=== PATIENT | male | born 1970 | race Caucasian/White ===

== ENCOUNTER 2018-06-19 09:44 | Emergency (ER) | payer BC ==
[2018-06-19 10:22] LABS: #Basophils 0.1 thou/uL (0.0-0.2); #Eosinphils 0.2 thou/uL (0.0-0.7); #Lymphocytes 1.9 thou/uL (1.20-3.40); #Monocytes 0.5 thou/uL (0.11-0.59); #Neutrophils 3.2 thou/uL (1.40-6.50); %Basophils 0.9 % (0.0-1.0); %Eosinophils 3.1 % (0.0-10.0); %Lymphocytes 32.7 % (21.0-51.0); %Monocytes 8.6 % (0.0-10.0); %Neutrophils 54.7 % (42.0-75.0); Hemoglobin 14.7 g/dL (14.0-18.0); Mean Corpuscular HGB CONC 34.7 g/dL (32.0-36.0); Mean Corpuscular Hemoglobin 31.5 pg (27.0-31.0); Mean Corpuscular Volume 90.8 fL (78.0-98.0); Mean Platelet Volume 7.1 fL (7.4-10.4); Platelet Count 257 thou/uL (130-400); RBC Distribution Width 11.7 % (11.5-14.5); Red Blood Cell (RBC) Count 4.66 mill/uL (4.70-6.10); White Blood Cell (WBC) Count 5.8 thou/uL (4.8-10.8)
[2018-06-19 10:29] LABS: Bilirubin Negative (Negative); Blood, Urine Negative (Negative); Clarity CLEAR (Clear); Glucose, Urine (Dipstick) Negative (Negative); Leukocyte Negative (Negative); Nitrite Negative (Negative); Protein, Urine (Dipstick) Negative (Neg-Trace); Specific Gravity, Urine 1.025 (1.002-1.036); Urobilinogen 0.2 mg/dL (0.2-1.0); pH, Urine 6.5 (5.0-9.0)
[2018-06-19 10:45] LABS: ALT (SGPT) 41 U/L (8-55); AST (SGOT) 26 U/L (5-34); Albumin 4.2 g/dL (3.5-5.0); Alkaline Phosphatase 91 U/L (40-150); Anion Gap 8 mmol/L (10-20); BUN (Urea Nitrogen) 22 mg/dL (8.9-20.6); Bilirubin, Total 0.6 mg/dL (0.2-1.2); Calc. Creatinine Clearance 0 mL/min (70-130); Calcium 8.8 mg/dL (7.8-10.44); Carbon Dioxide 24 mmol/L (22-29); Chloride 106 mmol/L (98-107); Estimated GFR-MDRD Greater than 90; Glucose 106 mg/dL (70-105); Lipase 18 U/L (8-78); Potassium 4.2 mmol/L (3.5-5.1); Protein, Total 7.2 g/dL (6.0-8.3); Sodium 134 mmol/L (136-145)
--- NOTE | 2018-06-19 10:47 | CT ---
CT OF ABDOMEN AND PELVIS PERFORMED WITHOUT CONTRAST ENHANCEMENT: HISTORY: Abdominal pain. History of kidney stones. FINDINGS: The lung bases are clear. The liver, spleen, pancreas and gallbladder regions appear unremarkable. Right and left adrenal glands and right and left kidneys are normal in size and appearance. No renal or ureteral calculi are seen. There is no significant periaortic or mesenteric adenopathy. CT OF PELVIS PERFORMED WITHOUT CONTRAST ENHANCEMENT: The appendix is normal. There is no evidence of adenopathy or mass. There is some subtle inflammato ry change within the fat along the right margin of the sigmoid colon. There is some minimal divertic ular disease in this area. Cannot totally exclude the possibility that this is early diverticulitis. IMPRESSION: Subtle inflammatory change within the fat adjacent to the sigmoid colon and associated very minimal d iverticular disease. I cannot exclude this is some minimal early diverticulitis. POS: JESENIA
== END 2018-06-19 11:24 | disposition home or self-care (01) ==
LOC: ERS 09:44
DX: K57.92 Diverticulitis of intestine, part unspecified, without perforation or abscess without bleeding (principal); Z79.899 Other long term (current) drug therapy
CPT/HCPCS: 74176; 80053; 81003; 83690; 85025

== ENCOUNTER 2019-12-30 22:17 | Observation (INO) | payer BC ==
[2019-12-30 22:36] LABS: #Basophils 0.1 thou/uL (0.0-0.2); #Eosinphils 0.3 thou/uL (0.0-0.7); #Lymphocytes 2.7 thou/uL (1.20-3.40); #Monocytes 0.7 thou/uL (0.11-0.59); #Neutrophils 4.1 thou/uL (1.40-6.50); %Basophils 1.5 % (0.0-1.0); %Eosinophils 4.3 % (0.0-10.0); %Lymphocytes 34.1 % (21.0-51.0); %Monocytes 8.6 % (0.0-10.0); %Neutrophils 51.6 % (42.0-75.0); Hemoglobin 14.1 g/dL (14.0-18.0); Mean Corpuscular HGB CONC 33.9 g/dL (32.0-36.0); Mean Corpuscular Hemoglobin 30.9 pg (27.0-31.0); Mean Corpuscular Volume 91.1 fL (78.0-98.0); Mean Platelet Volume 7.7 fL (7.4-10.4); Platelet Count 266 thou/uL (130-400); RBC Distribution Width 11.5 % (11.5-14.5); Red Blood Cell (RBC) Count 4.58 mill/uL (4.70-6.10); White Blood Cell (WBC) Count 7.8 thou/uL (4.8-10.8)
[2019-12-30 22:58] LABS: ALT (SGPT) 38 U/L (8-55); AST (SGOT) 26 U/L (5-34); Albumin 4.2 g/dL (3.5-5.0); Alkaline Phosphatase 116 U/L (40-110); Anion Gap 13 mmol/L (10-20); BUN (Urea Nitrogen) 21 mg/dL (8.9-20.6); Bilirubin, Total 0.3 mg/dL (0.2-1.2); CK (CPK) 290 U/L (30-200); Calc. Creatinine Clearance 0 mL/min (70-130); Calcium 8.8 mg/dL (7.8-10.44); Carbon Dioxide 25 mmol/L (22-29); Chloride 107 mmol/L (98-107); Estimated GFR-MDRD 67; Globulin 3.4 g/dL (2.4-3.5); Glucose 132 mg/dL (70-105); Lipase 33 U/L (8-78); Potassium 3.8 mmol/L (3.5-5.1); Protein, Total 7.6 g/dL (6.0-8.3); Sodium 141 mmol/L (136-145)
--- NOTE | 2019-12-30 22:58 | RAD ---
XR Chest 1 View Portable History: Chest pain Comparison: Radiograph 2014 Findings: Lungs are clear. No pneumothorax. No effusion. Tendon suture anchors left lambdoid. No acute osseous abnormality. Impression: No acute intrathoracic abnormality.
--- NOTE | 2019-12-30 23:25 | CT ---
CT Brain WO Con History: Vertigo Comparison: None. Findings: No acute hemorrhage or infarct. No midline shift or mass effect. Ventricular size and extra -axial CSF spaces are normal. Paranasal sinuses and mastoids are clear. Calvarium is intact. Impression: No acute intracranial abnormality.
[2019-12-31 01:11] VITALS: BMI 38.0
[2019-12-31] MEDS ORDERED: Nitroglycerin 0.4 MG TAB (25 Tab Bottle) PO PRN (01:43)
[2019-12-31] MEDS ORDERED: Sodium Chloride 0.9% 1,000 ML IV SCH (02:00)
--- NOTE | 2019-12-31 02:54 | HP ---
TIME OF ASSESSMENT: 010 CHIEF COMPLAINT: Dizziness and chest pain. HISTORY OF PRESENT ILLNESS: Mr. Kendrick is a 49-year-old gentleman, who states he is concerned regarding chest pain he experienced this evening. The chest pain started when he was in route to the hospital. The patient states he decided to seek medical attention due to sudden onset dizziness associated with an elevated blood pressure. The patient was apparently sitting home watching TV when he suddenly developed dizziness, described as a spinning sensation. The patient reports having a mild occipital headache. He states he shook his head, but the symptoms worsened. He stood up to get water from the kitchen and noted that his gait was veering towards the left and his , who is a physical therapist, checked his blood pressure and noticed he was hypertensive with a blood pressure of 150/100. He opted to seek medical attention and when en route to the hospital, he began to feel left-sided discomfort in his chest radiating to the left shoulder. He reports having chronic issues with bilateral shoulder pain. The pain he states was a 5/ 10 in severity, described as an aching. The patient reports being very concerned due to a history of coronary artery disease in his sister who had a quadruple bypass in her early 50s. He states he recently had a stress test less than 6 months ago and follows with Dr. Dave. The patient states his pain has resolved on its own. He is no longer experiencing dizziness. Denies having any extremity weakness or numbness, but does report noting slight numbness on the right side of his face while in the emergency department, however, that has resolved. Denies any other symptoms. EMERGENCY DEPARTMENT COURSE: In the emergency department, the patient underwent an EKG which showed normal sinus rhythm with a heart rate of 99. There were no ST changes or T-wave abnormalities. He was given 324 mg of aspirin and 1 L of normal saline, also nitroglycerin sublingual. Given the complaints of dizziness, he underwent a CT of the brain which showed no acute intracranial abnormality. He did have a chest x-ray done as well also showing no acute intrathoracic abnormality. PAST MEDICAL HISTORY: 1. Obesity. 2. Bilateral shoulder pain. PAST SURGICAL HISTORY: 1. Bilateral shoulder surgeries. 2. Epigastric hernia repair. 3. Back surgery. SOCIAL HISTORY: The patient lives with his . Reports drinking alcohol occasionally. Denies any drug use or tobacco use. ALLERGIES: NO KNOWN DRUG ALLERGIES. CURRENT MEDICATIONS: 1. Flonase. 2. Claritin. PHYSICAL EXAMINATION: GENERAL: Patient appears well developed, well nourished, is in no acute distress. VITAL SIGNS: Temperature 98.2, pulse 85, blood pressure 134/76, respirations 18 , O2 saturation 96% on room air. HEENT: Normocephalic, atraumatic. Pupils are equal, round, and reactive to light. Sclerae without icterus. Oropharynx is clear. NECK: Supple. No lymphadenopathy. LUNGS: Clear to auscultation bilaterally without wheezes, rales, or rhonchi. CARDIAC: Regular rate and rhythm without audible murmurs, rubs, or gallops. ABDOMEN: Soft, obese, nontender, nondistended. Normoactive bowel sounds present. No guarding or rigidity. No renal angle tenderness. EXTREMITIES: No lower leg swelling or edema. NEUROLOGIC: Alert and oriented x3. Power 5/5 in all limbs. Facial movements normal. Facial sensation intact. No cerebellar signs. SKIN: Warm and dry. INVESTIGATIONS: As mentioned above in HPI. Full blood count done showed a white count of 7.8, hemoglobin 14.1, and hematocrit 41.7, platelets 266. Sodium 141, potassium 3.8, BUN 21, creatinine 1.17, GFR 67, glucose 132, and calcium 8.8. LFTs unremarkable. CK 290, alkaline phosphatase 116. Troponin negative. IMPRESSION AND PLAN: Mr. Kendrick is a 49-year-old gentleman, who is being admitted for management of the following. 1. Dizziness/ataxia. Symptoms have fully resolved. He had sudden onset dizziness while watching TV with an associated occipital headache. CT head was negative. We will obtain a CT angiogram of the head and neck and echo. The patient's symptoms have fully resolved. Neurology consult ordered as well. 2. Acute coronary syndrome rule out. The patient experienced chest pain while en route to the hospital, which has fully resolved. Strong family history of coronary artery disease in his sister. EKG unremarkable. Continue to trend troponins. Recent stress test less than 6 months ago. Per patient request, consultation has been placed to Dr. Dave. 3. Gastrointestinal prophylaxis with famotidine. 4. Deep venous thrombosis prophylaxis, the patient is ambulatory. 5. Code status is full. Surrogate decision maker is his , Leslye Kendrick. Case discussed with Dr. French, who agrees with plan of care as described above. Job ID: [id number] [facility]
--- NOTE | 2019-12-31 04:26 | PDOC.EVN ---
Event Note - Event Note Event Note: Notified by RN, patient experiencing chest pain 4/10 , radiating to left neck/ arm. Stat EKG done notable for further ST depression in v4-v6 compared to previous EKG. Aspirin 325 mg PO x 1 and nitro SL ordered. Trend trop x 3. Cardiology already consulted for the AM. Patient has been NPO since midnight. Dr. Edgar aware and in agreement with plan as above.
[2019-12-31] MEDS ORDERED: Aspirin 325 mg Enteric Coated Tablet PO SCH (04:30)
[2019-12-31 05:02] LABS: #Basophils 0.1 thou/uL (0.0-0.2); #Eosinphils 0.2 thou/uL (0.0-0.7); #Monocytes 0.5 thou/uL (0.11-0.59); %Basophils 1.8 % (0.0-1.0); %Eosinophils 4.2 % (0.0-10.0); %Lymphocytes 34.3 % (21.0-51.0); %Monocytes 8.5 % (0.0-10.0); %Neutrophils 51.2 % (42.0-75.0); Hemoglobin 12.7 g/dL (14.0-18.0); Mean Corpuscular HGB CONC 32.9 g/dL (32.0-36.0); Mean Corpuscular Hemoglobin 30.1 pg (27.0-31.0); Mean Corpuscular Volume 91.7 fL (78.0-98.0); Mean Platelet Volume 7.8 fL (7.4-10.4); Platelet Count 235 thou/uL (130-400); RBC Distribution Width 11.4 % (11.5-14.5); Red Blood Cell (RBC) Count 4.22 mill/uL (4.70-6.10); White Blood Cell (WBC) Count 5.8 thou/uL (4.8-10.8)
[2019-12-31 05:16] LABS: Anion Gap 11 mmol/L (10-20); BUN (Urea Nitrogen) 20 mg/dL (8.9-20.6); Calc. Creatinine Clearance 208 mL/min (70-130); Calcium 8.1 mg/dL (7.8-10.44); Carbon Dioxide 21 mmol/L (22-29); Cardiac Risk 4.8 (Less than 4.5); Chloride 110 mmol/L (98-107); Cholesterol 173 mg/dl (< 200 Desired); Estimated GFR-MDRD Greater than 90; Glucose 123 mg/dL (70-105); HDL Cholesterol 36 mg/dL (>60 Neg Risk); LDL Cholesterol, Calculated 128 mg/dL; Potassium 4.1 mmol/L (3.5-5.1); Sodium 138 mmol/L (136-145); Triglycerides 47 mg/dL (Less than 150)
[2019-12-31 05:19] LABS: Troponin I Less than 0.010 ng/mL (< 0.028)
--- NOTE | 2019-12-31 08:57 | CT ---
PRELIMINARY REPORT/[facility]/EMERGENCY AFTER HOURS PROCEDURE: EXAM: CTA Head and Neck with Intravenous Contrast. CLINICAL HISTORY: INPT; M48, rule out CVA, vertigo/ataxia. TECHNIQUE: Axial CTA images of the head and neck performed with intravenous contrast. MIP reconstruct ed images were created and reviewed. Note: Per PQRS, the description of internal carotid artery percent stenosis, including 0 percent or normal exam, is based on [place] Symptomatic Carotid Endarterectomy Trial (NASCET) criteria. CONTRAST: With; 100ML ISOVUE 370 COMPARISON: None provided. FINDINGS: CTA NECK: COMMON CAROTID ARTERIES No significant stenosis. No dissection or occlusion. INTERNAL CAROTID ARTERIES No stenosis by NASCET criteria. No dissection or occlusion. Arterial scler osis in the right parasellar internal carotid artery. VERTEBRAL ARTERIES No significant stenosis. No dissection or occlusion. The left vertebral artery is dominant. CTA HEAD: ANTERIOR CEREBRAL ARTERIES No significant stenosis. No occlusion. No aneurysm. MIDDLE CEREBRAL ARTERIES No significant stenosis. No occlusion. No aneurysm. POSTERIOR CEREBRAL ARTERIES No significant stenosis. No occlusion. No aneurysm. BASILAR ARTERY No significant stenosis. No occlusion. No aneurysm. OTHER: SOFT TISSUES No acute finding. No masses or lymphadenopathy. BONES No acute osseous abnormality. Multilevel degenerative disc disease. IMPRESSION: Unremarkable CTA of the head and neck. ELECTRONICALLY SIGNED BY: Compa Oscar MD Dec 31, 2019 2:55:11 AM INJECTION MOLDING SUPERVISOR FINAL REPORT EMERGENCY AFTER HOURS STUDY CT ANGIOGRAM NECK WITH CONTRAST CT ANGIOGRAM BRAIN WITH CONTRAST: DATE:12/31/2019. HISTORY: 49-year-old male with vertigo and ataxia. TECHNIQUE: After IV contrast injection, arterial bolus chasing technique scan performed from AP window to vertex of head. Coronal and sagittal 3-D MIP reconstructions. FINDINGS: Because of body habitus, there is streak artifact obscuring the origins of the bilateral vertebral ar teries. Proximal portions of vertebral arteries are poorly visualized. Left vertebral artery is dominant. No high-grade stenosis or occlusion of bilateral cervical and intracranial vertebral arteries. No M1 segment thrombus or high-grade stenosis. No high-grade stenosis in the rest of the visualized major arteries. Agree with preliminary report by [facility]. IMPRESSION: 1. Poor visualization of proximal vertebral arteries. 2. Otherwise negative. Transcribed Date/Time: 12/31/2019 9:24 AM
[2019-12-31] MEDS ORDERED: Famotidine/PF 20 mg/2ml Vial SLOW IVP SCH (09:00)
[2019-12-31] MEDS ORDERED: Aspirin 81 mg Enteric Coated Tablet PO SCH (09:00)
[2019-12-31] MEDS ORDERED: Iopamidol-370 76% 500 ML 1 ML ONE (12:48)
--- NOTE | 2019-12-31 14:43 | MRI ---
MRI BRAIN WITHOUT CONTRAST: HISTORY: Dizziness, TIA, vertigo CORRELATION: CT scan from 12/30/2019. FINDINGS: No restricted diffusion is seen. There are a few foci of T2 prolongation in the periventricular white matter, consistent with mild chronic small vessel ischemic disease. The ventricular size is appropriate and the basilar cisterns are patent. No evidence of acute infarct, hemorrhage, midline shift or abnormal extra-axial fluid collections is seen. The visualized paranasal sinuses and mastoid air cells are well-aerated. IMPRESSION: No evidence of acute intracranial process.
--- NOTE | 2019-12-31 15:15 | CON ---
DATE OF CONSULTATION: PRIMARY CARE PHYSICIAN: Dr. Oskar Martinez. PRIMARY SENIOR STRUCTURAL ENGINEER: Dr. Tamara Dave. MAIN GI DOCTOR: Dr. Martinez. REASON FOR CARDIOLOGY CONSULT: Chest pain, recent normal test. HISTORY OF PRESENT ILLNESS: Mr. Kendrick is a 49-year-old, very pleasant male with significant history of GERD and seasonal allergy. The patient underwent a treadmill Jared protocol stress test in June 2019 for complaint of chest tightness at rest and shortness of breath and also due to the strong family history of heart disease. The patient's treadmill stress test in June 2019 showed normal, no EKG change. Since then, the patient was doing well. He works at [employer]. He takes the stairs up and down at least 3 miles a day without any chest pain, heaviness, tightness, shortness of breath, or any other cardiac complaints. However, last night around 7:00, while the patient was watching TV on the sofa, he started having spinning like dizziness for 3 to 4 minutes. At that time, he did not have any shortness of breath, chest pain or tightness, or any other cardiac complaints. When the patient dizziness stopped, the patient started having stabbing like headache at the occipital and frontal area. Due to that symptom, the patient's took the patient to the ER. While he was in the car for 30 minutes, he started having achiness like pain to the left upper arm, left upper chest and under the left breast for 15 minutes. Also, he started having chest tightness to mid mediastinal area until at this moment. The patient denied dizziness, shortness of breath, or any other cardiac complaints during that episode. The patient still complaining of the chest tightness at this moment, however, he can walk to the bathroom without . The patient denied shortness of breath or any other cardiac complaints when he walk around the room. He has a history of GERD. He underwent EGD and colonoscopy in July last year by Dr. Mratinez, which were normal. He takes Pepcid as needed, last administration was 2 days ago. The patient has a Jared protocol treadmill stress test in June 2019 with normal EKG, no symptom, no ischemic change at the peak exercise. The patient had echocardiogram done today and the result is pending. The patient's sister has history of CABG in July 2019 at the age of 5252 years old. She had another myocardial infarction in November 2019, she continued smoking. PAST MEDICAL HISTORY: Diverticulitis, GERD. The patient has borderline diabetes. PAST SURGICAL HISTORY: EGD and colonoscopy in July 2019, which were normal; total 4 bilateral shoulder surgeries; hernia repair in . FAMILY HISTORY: The patient's sister had a CABG procedure at the age of 52 and she had another myocardial infarction in 3 months this year. The patient's cousin has long history of hypertension since he was 14 years old and he has a history of coronary artery disease. The patient's father and mother due to cancer. SOCIAL HISTORY: The patient is . He has 3 children, who live well. The patient works at [employer] as a full-time. He walks at least 3 [address]. The patient denied any cardiac complaints during that time. The patient denied tobacco abuse. He drinks 1 to 2 beers per week. The patient denies illicit drug abuse. He does not do any cardiac exercise. He drinks coffee or tea one and half cup a day. ALLERGIES: NO KNOWN DRUG ALLERGIES. MEDICATIONS: 1. Pepcid 40 mg once a day as needed. 2. Flonase and Claritin as needed. REVIEW OF SYSTEMS: 12-point review of systems negative unless otherwise mentioned in the HPI. PHYSICAL EXAMINATION: VITAL SIGNS: Blood pressure 112/55, temperature 97.9, pulse is 87 and sinus rhythm, respiratory rate 16, O2 saturations 95% on room air. GENERAL: The patient is alert and oriented x4, not in acute distress. HEAD: Normocephalic and atraumatic. EYES: Extraocular muscle movement intact. ENT AND MOUTH: Oral and nasal mucosa moist without lesions. NECK: Supple. Normal range of motion. No JVD. RESPIRATORY: Clear to auscultate bilaterally. No wheezing, rales, or rhonchi noted. CARDIOVASCULAR: Regular rate and rhythm. Normal S1 and S2. There is no S3 or S4. No significant murmur, hives, or thrill noted. 2+ pulses in bilateral upper and lower extremities. No edema in lower extremities. ABDOMEN: Soft, nontender. No mass palpated. Bowel sounds are present. MUSCULOSKELETAL: The patient able to move all extremities without difficulty. The patient denied claudication. SKIN: Warm and dry. No lesion, rash, or erythema noted. NEUROLOGIC: The patient is alert and oriented x4. Nonfocal. PSYCHIATRIC: The patient's mood is appropriate. LABORATORY DATA: WBC 5.8, hemoglobin 12.7, hematocrit 38.7, platelet 235. Sodium 138, potassium 4.1, BUN 20, creatinine 0.76, glucose 123, AST 26, ALT 38. Troponin is negative x3. BNP is negative. Total cholesterol 173, triglycerides HDL 36, LDL 128, and TSH 1.6581. IMAGING STUDIES: The patient had a brain CT scan done with no acute intracranial abnormality. Chest x-ray shows no acute intrathoracic abnormality. The patient had a CT angiography done, but the result is pending. The patient had echocardiogram done this morning and the result is pending at this moment. The patient's troponin has been negative x3. The patient's EKG is normal rhythm without ST-segment changes or T-wave inversion. The patient's treadmill stress test in June 2019 showed normal. However, the patient presented to the hospital for recurrent chest tightness with strong family history of coronary artery disease. We would like to keep the patient n.p.o. after the patient had a light breakfast this morning. I would like to discuss with Dr. Dave for further cardiac evaluation for this patient. At this moment, the patient has a chest tightness, however, it is mild. The patient's vital signs are stable. If the patient's symptoms are getting worse, we would like to order nitroglycerin paste for this patient. Hyperlipidemia. The patient's LDL is 128 and HDL 36. The patient is willing to start cardiac exercise, watching his diet. 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 GERD. The patient's condition is stable at this moment. He is on Pepcid 20 mg IV push every 12 hours. Thank you very much for Cardiology Service to participate in care of this patient. We will follow along the patient's care team and make further recommendations as appropriate. Job ID: [id number]
[2019-12-31 16:26] VITALS: BP 140/73; TEMP 98.3
--- NOTE | 2020-01-01 02:14 | CON ---
DATE OF CONSULTATION: 12/31/2019 INDICATION FOR CONSULTATION: A 49-year-old patient, who complains of chest discomfort. Also has family history of coronary artery disease. He has no history of any other risk factors for coronary artery disease which would include hypertension, diabetes, hypercholesterolemia or tobacco abuse. He was seen in the office by me in May of last year 2018 at which time, he complained of some chest discomfort. He underwent an evaluation at that time with a stress test, which showed no evidence of ischemia. He was able to walk on a treadmill for almost 7 minutes and 41 seconds and had no EKG changes and no evidence of ischemia. Yesterday had been out working, went to the dentist office, then he went home, was sitting down on the sofa for about an hour and a half and then developed some dizziness. He then tried to get up. He said when he stood up, he originally was not dizzy. He was surprised,that he was not dizzy. He then went to the bathroom or kitchen to get some water. On his way back, he became very dizzy, had to put his hand on the table. His noticed that and she asked him to just sit down on the floor, which he did and then he continued to have some dizziness and he developed some pain in the back of his head, and then she brought him to the emergency room. He was worked up and thus far has been unremarkable. His enzymes are negative for myocardial infarction. CT scan was unremarkable for any evidence of any acute neurological effects or events and also he had echocardiogram performed, which shows normal ejection fraction with no evidence of significant abnormalities. Cardiac enzymes are negative and EKG is also unremarkable for any evidence of ongoing ischemia. On the way to the hospital, his asked him if he was sure that he did not have any chest discomfort and he did eventually said yes. He did have some chest discomfort when he arrived here. The pain had already resolved and he still complains of on and off being dizzy. At the time the original dizziness, apparently, the blood pressure was 150/100, that has now stabilized. He also had a headache which also then had persisted, but then resolved. He has some problems with bilateral shoulders. He complains of some left shoulder pain. He describes the pain once his had asked that he have pain that is a sharp stabbing pain in the left anterior lateral chest over the shoulder area, which radiated down the arm. He said that he had some tightness and the tightness still persist, but again no EKG changes. Enzymes have been noted. His echocardiogram here also shows no evidence of significant abnormalities. The right ventricle appeared to be slightly dilated in some views and may be hypokinetic, but otherwise unremarkable. He had a CT scan of the head, which showed no evidence of carotid artery disease and no evidence of internal abnormalities otherwise. PHYSICAL EXAMINATION: GENERAL: Reveals a well-developed, well-nourished gentleman, in no acute distress. He is alert. He is oriented. VITAL SIGNS: Stable. HEENT: Unremarkable. CHEST: Clear to auscultation. CARDIOVASCULAR: Reveals a regular rate and rhythm. ABDOMEN: Shows obesity with positive bowel sounds. EXTREMITIES: Show no clubbing, cyanosis, or edema. Pedal pulses are present. NEUROLOGICAL: The patient appears to be fully intact. LABORATORY DATA: Please refer to the notes dictated by the nurse practitioner, Justin Ayala. SOCIAL HISTORY: Please refer to the notes dictated by the nurse practitioner, Justin Ayala. PAST MEDICAL HISTORY: Please refer to the notes dictated by the nurse practitioner, Justin Ayala. REVIEW OF SYSTEMS: Please refer to the notes dictated by the nurse practitioner , Justin Ayala. ALLERGIES: PLEASE REFER TO THE NOTES DICTATED BY THE NURSE PRACTITIONER, JUSTIN AYALA. MEDICATIONS: Please refer to the notes dictated by the nurse practitionerJustin. IMPRESSION: 1. Middle-aged gentleman, who has a family history of coronary artery disease. His sister within the last year had bypass surgery, then she had failed bypasses and had stent placement. She did smoke, however, he does not smoke. He seems to be somewhat anxious and unconcerned about his own health. I did explain to him that at this time, I do not have an indication to proceed with cardiac catheterization as possible that we could set him up as an outpatient to undergo coronary CT angiogram to see whether or not there is any narrowing in the coronaries and if so, then perhaps proceed with cardiac catheterization if indicated but at this time, I do not see an indication to proceed. I have explained that to the patient. Otherwise , he has remained stable throughout the hospital course. He has been seen by Neurology and no acute events have been noted. 2. Dizziness which may be related to perhaps acute onset of blood pressure with some hypertension. His blood pressure was apparently 150/100, this has now stabilized. He does not have hypertension and this appears to be under good control at this time. I would continue the aspirin in this patient. Otherwise, I do not have any further recommendations, but would be agreeable to continue to follow with patient as an outpatient, but at this time, I feel that the patient is stable for discharge. Job ID: [id number] [facility]
--- NOTE | 2020-01-01 05:21 | DIS ---
DATE OF ADMISSION: 12/31/2019 DATE OF DISCHARGE: 12/31/2019 PRIMARY CARE PHYSICIAN: Oskar Martinez MD. REASON FOR ADMISSION: Dizziness and chest pain. DIAGNOSES AT DISCHARGE: 1. Dizziness, resolved. 2. Chest pain, resolved. Acute coronary syndrome ruled out. 3. Obesity. 4. Low HDL. PROCEDURES: 1. CT of the brain without contrast showing no intracranial abnormalities. 2. CT angiography of the brain showing no abnormalities. 3. MRI of the brain showing no acute intracranial abnormalities. No evidence of acute ischemic subacute ischemic stroke. 4. Echocardiogram showing a normal ejection fraction and normal heart size. No significant abnormalities. CONSULTATIONS: Cardiology, Dr. Dave. SUMMARY OF HOSPITAL COURSE: This is a 49-year-old white male who while at rest about an hour after seeing him has developed some dizziness. This improved and then when as he got up and was walking around later on it gotten worse. He then later developed an occipital headache and was told by his that he should go to the emergency room. On his way, he started to develop some sharp left-sided chest or shoulder pain. This resolved in the emergency room. He has not had any symptoms since. He was noted to have a single elevated blood pressure of 150/100 but that resolved and he has had normal blood pressures ever since. The patient was admitted to the observation unit at the hospital. His heart was watched on telemetry. He had imaging and has done as above. Dr. Laughlin did come by and talk to the patient and told if he has further dizziness, he can follow up at his clinic however with a negative MRI. There is no evidence of any stroke or other acute neurologic issue. Dr. Dave did go and evaluate the patient. She determined that the patient's pain was not cardiac. He had negative enzymes, normal EKG, and normal echocardiogram, and he has had a normal stress test in our office. She did recommend starting a daily baby aspirin and if he wants to work this up further, we might consider a CT angiography of the coronary vessels in the clinic, but cleared him to go home today. The patient was asymptomatic at the time of discharge and being discharged home. DISCHARGE MANAGEMENT: Discharged home. ACTIVITY: As tolerated. DIET: Healthy heart diet. RECOMMENDATIONS: Regular exercise and try to lose some weight to help with his cholesterol profile and cardiovascular fitness. FOLLOWUP: Follow up with Dr. Dave as directed and with Dr. Oskar Martinez in the next 1-2 weeks. DISCHARGE MEDICATIONS: Aspirin 81 mg daily, 30 tablets dispensed. Job ID: [id number]
== END 2019-12-31 17:47 | disposition home or self-care (01) ==
LOC: ERS 22:17 → 2SW 12-31 00:27
PROVIDERS: ADMIT Internal Medicine; ATTEND Internal Medicine
DX: R42 Dizziness and giddiness (principal); R07.89 Other chest pain; R51 Headache; K21.9 Gastro-esophageal reflux disease without esophagitis; J30.2 Other seasonal allergic rhinitis; R73.03 Prediabetes; E78.5 Hyperlipidemia, unspecified; M25.512 Pain in left shoulder; M25.511 Pain in right shoulder; E66.9 Obesity, unspecified; Z68.38 Body mass index [BMI] 38.0-38.9, adult; Z82.49 Family history of ischemic heart disease and other diseases of the circulatory system
CPT/HCPCS: 36415; 70450; 70496; 70498; 70551; 71045; 80048; 80053; 80061; 82550; 83690; 83880; 84443; 84484; 85025; 93005; 93010; 93306; 94760; 96360; 96361; 96374; G0378; Q9967; S0028

== ENCOUNTER 2022-10-03 07:04 | Outpatient (CLI) | payer OTHER ==
[2022-10-02 14:23] VITALS: BMI 39.0
[2022-10-03] MEDS ORDERED: Iopamidol-M 200 41% 10 ML VIAL FS ONE (09:04)
[2022-10-04 02:47] VITALS: BP 136/76; TEMP 97.6
== END 2022-10-03 09:20 | disposition home or self-care (01) ==
LOC: RAD 07:04
PROVIDERS: ATTEND Neurological Surgery
DX: M54.16 Radiculopathy, lumbar region (principal); M51.36 Other intervertebral disc degeneration, lumbar region; M43.17 Spondylolisthesis, lumbosacral region; M48.061 Spinal stenosis, lumbar region without neurogenic claudication
CPT/HCPCS: 62304; 72132

== ENCOUNTER 2024-10-17 08:04 | Outpatient (CLI) | payer OTHER | END 2024-10-17 08:05 | disposition home or self-care (01) | LOC: CT 08:04 | DX: J32.8 Other chronic sinusitis (principal); J34.89 Other specified disorders of nose and nasal sinuses ==

== ENCOUNTER 2025-08-30 06:52 | Emergency (ER) | payer BC, OTHER ==
[2025-08-30] MEDS ORDERED: Ketorolac Tromethamine 30 MG (1 mL) VIAL ONE (07:08)
[2025-08-30 07:22] LABS: Hematocrit 43.4 % (42.0-52.0); Hemoglobin 14.7 g/dL (14.0-18.0); Mean Corpuscular Hemoglobin 30.1 pg (27.0-31.0); Mean Corpuscular Volume 88.8 fL (78.0-98.0); Platelet Count 156 10x3/uL (130-400); Red Blood Cell (RBC) Count 4.89 mill/uL (4.70-6.10); White Blood Cell (WBC) Count 7.57 10x3/uL (4.8-10.8)
[2025-08-30 07:52] LABS: Macrocytosis SLIGHT = 6-15 cells HPF (0-5); Platelet Adequacy Comment Platelets Decreased
[2025-08-30] MEDS ORDERED: Ondansetron PF 4 MG/2 ML Vial ONE (07:55)
[2025-08-30 07:58] LABS: ALT (SGPT) 37 U/L (Less than 45); AST (SGOT) 45 U/L (11-34); Albumin 4.2 g/dL (3.1-4.5); Alkaline Phosphatase 98 U/L (40-110); Anion Gap 20 mmol/L (10-20); BUN (Urea Nitrogen) 21 mg/dL (8.4-25.7); Bilirubin, Total 0.4 mg/dL (0.3-1.2); Calc. Creatinine Clearance 0 mL/min (70-130); Calcium 9.5 mg/dL (7.8-10.44); Carbon Dioxide 17 mmol/L (22-29); Chloride 109 mmol/L (98-107); Globulin 3.5 g/dL (2.4-3.5); Glucose 156 mg/dL (70-105); Lipase 55 U/L (8-78); Potassium 4.6 mmol/L (3.5-5.1); Sodium 141 mmol/L (136-145)
[2025-08-30 08:00] LABS: #Basophils 0.05 10x3/uL (0.0-0.2); #Eosinophils 0.26 10x3/uL (0.0-0.7); #Monocytes 0.72 10x3/uL (0.11-0.59); #Neutrophils 3.40 10x3/uL (1.40-6.50); %Basophils 0.7 % (0.0-1.0); %Eosinophils 3.4 % (0.0-10.0); %Lymphocytes 41.2 % (21.0-51.0); %Monocytes 9.5 % (0.0-10.0); %Neutrophils 44.9 % (42.0-75.0)
[2025-08-30 09:39] LABS: CAUTI Indications for Culture Dysuria,urgency,freq; Glucose, Urine (Dipstick) Normal (Negative); Leukocyte Negative Leu/uL (Negative); Protein, Urine (Dipstick) Negative (Neg-Trace); RBC/HPF Greater than 50 HPF (0-3); Yeast-Budding 1+ HPF (None Seen)
[2025-08-30] MEDS ORDERED: Iopamidol 370 76% 100 ML VIAL ONE (09:57)
[2025-08-30 09:58] LABS: Bacteria/HPF Rare-Few HPF (None Seen); Specific Gravity, Urine Greater than 1.050 (1.002-1.036)
[2025-08-30 10:05] LABS: Urine Culture Reflex No No
== END 2025-08-30 10:15 | disposition home or self-care (01) ==
LOC: ERS 06:52
DX: N13.2 Hydronephrosis with renal and ureteral calculous obstruction (principal); F17.200 Nicotine dependence, unspecified, uncomplicated; Z55.6 Problems related to health literacy
CPT/HCPCS: 74177; 80053; 81001; 83690; 85025; 87086; 93005; 96374; 96375; J1885; Q9967

== ENCOUNTER 2025-09-01 14:01 | Emergency (ER) | payer OTHER, BC ==
[2025-09-01 14:50] LABS: Bacteria/HPF 1+ HPF (None Seen); CAUTI Indications for Culture Pelvic or flank pain; Glucose, Urine (Dipstick) Normal (Negative); Leukocyte 75 Leu/uL (Negative); Protein, Urine (Dipstick) Negative (Neg-Trace); RBC/HPF 0-3 HPF (0-3); Specific Gravity, Urine 1.020 (1.002-1.036)
[2025-09-01 14:51] LABS: Urine Culture Reflex No No
[2025-09-01] MEDS ORDERED: Ondansetron PF 4 MG/2 ML Vial ONE (16:38)
[2025-09-01 17:10] LABS: #Basophils 0.04 10x3/uL (0.0-0.2); #Eosinophils 0.21 10x3/uL (0.0-0.7); #Monocytes 0.67 10x3/uL (0.11-0.59); #Neutrophils 5.23 10x3/uL (1.40-6.50); %Basophils 0.5 % (0.0-1.0); %Eosinophils 2.5 % (0.0-10.0); %Lymphocytes 25.5 % (21.0-51.0); %Monocytes 8.1 % (0.0-10.0); %Neutrophils 63.0 % (42.0-75.0); Hematocrit 39.5 % (42.0-52.0); Hemoglobin 13.3 g/dL (14.0-18.0); Mean Corpuscular Hemoglobin 30.4 pg (27.0-31.0); Mean Corpuscular Volume 90.4 fL (78.0-98.0); Platelet Count 237 10x3/uL (130-400); Red Blood Cell (RBC) Count 4.37 mill/uL (4.70-6.10); White Blood Cell (WBC) Count 8.29 10x3/uL (4.8-10.8)
[2025-09-01 17:29] LABS: ALT (SGPT) 30 U/L (Less than 45); AST (SGOT) 29 U/L (11-34); Albumin 3.8 g/dL (3.1-4.5); Alkaline Phosphatase 72 U/L (40-110); Anion Gap 16 mmol/L (10-20); BUN (Urea Nitrogen) 22 mg/dL (8.4-25.7); Bilirubin, Total 0.6 mg/dL (0.3-1.2); Calc. Creatinine Clearance 0 mL/min (70-130); Calcium 9.3 mg/dL (7.8-10.44); Carbon Dioxide 22 mmol/L (22-29); Chloride 106 mmol/L (98-107); Globulin 3.2 g/dL (2.4-3.5); Glucose 87 mg/dL (70-105); Potassium 4.0 mmol/L (3.5-5.1); Sodium 140 mmol/L (136-145)
[2025-09-01] MEDS ORDERED: Ketorolac Tromethamine 30 MG (1 mL) VIAL ONE (18:23)
== END 2025-09-01 18:50 ==
LOC: ERS 14:01
DX: N20.2 Calculus of kidney with calculus of ureter (principal); F17.200 Nicotine dependence, unspecified, uncomplicated
CPT/HCPCS: 74176; 80053; 81001; 83690; 85025; 96374; 96375; J1885